=== PATIENT | male | born 1960 | race Caucasian/White ===

== ENCOUNTER 2022-10-09 13:55 | Emergency (ER) | payer BC ==
[2022-10-09] MEDS ORDERED: TORAdol 30 mg Injection IM ONE (14:45)
[2022-10-09] MEDS ORDERED: TORAdol 30 mg Injection ONE (14:47)
--- NOTE | 2022-10-09 14:51 | ERPHSYRPT ---
- History of Present Illness Time Seen by Provider: 10/09/22 14:03 Source: patient Exam Limitations: no limitations Patient Subjective Stated Complaint: C/O hip pain after a fall yesterday. Patient states he fell while mowing his yard; stepped in a hole. Indicates both hips hurt now but the left is worse than the right. Triage Nursing Assessment: Patient ambulates with an uneven gait; limp. He is alert and oriented. No SOB. Skin tone normal. Physician History: 61-year-old with history of hypertension, hyperlipidemia, diabetes mellitus presented in the ER with chief complaint of bilateral hip pain off and on for la st few weeks which patient relates due to his job where he has to walk/run a lot all day long. Yesterday he was mowing his yard and fell hit his left hip against the more and since then having increased pain in the left hip with ambulation. Patient reports his hips/muscles are tense/stiff in the morning and gradually started getting better. Denies any numbness tingling or weakness of lower extremities. No loss of bowel or bladder control. Denies injury anywhere else. Patient rates 7/10 intensity pain, better with resting and more with activity. Patient is requesting work excuse for tomorrow. Occurred: yesterday Injuries/Pain Location: lower extremity Loss of Consciousness: no loss of consciousness Severity of Pain-Max: moderate Severity of Pain-Current: moderate Modifying Factors: Improves With: immobilization. Worsens With: movement Associated Symptoms (Fall): extremity injury, muscle spasms Allergies/Adverse Reactions: No Known Drug Allergies Allergy (Verified 10/09/22 14:12) Home Medications: Amlodipine Besylate [Norvasc] 1 tab PO DAILY 10/09/22 [History] Aspirin EC 81 mg [Ecotrin 81 mg] 1 tab PO DAILY 10/09/22 [History] Atorvastatin Calcium 1 tab PO HS 10/09/22 [History] Metformin HCl 500 mg [Glucophage 500 MG] 2 tab PO BID 10/09/22 [History] Hx Tetanus, Diphtheria Vaccination/Date Given: Yes Hx Influenza Vaccination/Date Given: No Hx Pneumococcal Vaccination/Date Given: No Immunizations Up to Date: Yes Travel Risk - International Travel Have you traveled outside of the country in past 3 weeks: No - Coronavirus Screening Are you exhibiting any of the following symptoms?: No Close contact with a COVID-19 positive Pt in past 14-21 Days: No - Vaccine Status Have you recieved a Covid-19 vaccination: Yes 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 - Review of Systems Constitutional: No Symptoms Eyes: No Symptoms Respiratory: No Symptoms Cardiac: No Symptoms Abdominal/Gastrointestinal: No Symptoms Genitourinary Symptoms: No Symptoms Musculoskeletal: Arthralgias, Injury, Joint Pain Skin: No Symptoms Neurological: No Symptoms Psychological: No Symptoms Hematologic/Lymphatic: No Symptoms Immunological/Allergic: No Symptoms - Past Medical History Pertinent Past Medical History: Yes Cardiac History: High Cholesterol, Hypertension Endocrine Medical History: Diabetes Type II Other Medical History: COVID - Past Surgical History Past Surgical History: Yes Other Surgical History: right foot surgery - Social History Smoking Status: Never smoker Exposure to second hand smoke: No Drug Use: none - Nursing Vital Signs Nursing Vital Signs: Initial Vital Signs Blood Pressure 124/78 10/09/22 14:12 O2 Sat by Pulse Oximetry 97 10/09/22 14:12 Pain Scale Pain Intensity 7 - Jose Coma Score Best Eye Response ([place]): (4) open spontaneously Best Verbal Response (Jose): (5) oriented Best Motor Response ([place]): (6) obeys commands Jose Total: 15 - Physical Exam General Appearance: no apparent distress Head Injury: no evidence of injury Eye Exam: PERRL/EOMI ENT Exam: airway nml, No evidence of ENT injury Neck Exam: supple, trachea midline, full range of motion, normal alignment Respiratory/Chest Exam: normal breath sounds, respiratory distress, No chest tenderness Cardiovascular Exam: normal heart sounds, regular rate/rhythm Gastrointestinal Exam: soft, No tenderness Back Exam: normal inspection Extremity Exam: normal inspection, normal range of motion, pain with movement (Both hips more at the left), No motor deficit, No sensory deficit Neurologic Exam: alert, oriented x 3, cooperative Skin Exam: normal color SpO2 Interpretation: normal SpO2: 98 O2 Delivery: Room Air Ordered Tests: Active Orders 24 hr Category Date Time Status HIP UNI (2V) INCL PEL IF DONE Stat Exams 10/09/22 14:45 Taken Medication Summary Discontinued Medications Generic Name Dose Route Start Last Admin Trade Name Freq PRN Reason Stop Dose Admin Ketorolac Tromethamine 30 mg 10/09/22 14:45 10/09/22 14:48 Ketorolac Tromethamine 30 Mg/Ml Inj IM 10/09/22 14:46 30 mg STAT ONE Administration Ketorolac Tromethamine Confirm 10/09/22 14:47 Ketorolac Tromethamine 30 Mg/Ml Inj Administered 10/09/22 14:48 Dose 30 mg .ROUTE .[employer] ONE - Progress Progress Note: 10/09/22 14:49 61-year-old with history of hypertension, hyperlipidemia, diabetes mellitus presented in the ER with chief complaint of bilateral hip pain off and on for last few weeks which patient relates due to his job where he has to walk/run a lot all day long. Yesterday he was mowing his yard and fell hit his left hip against the more and since then having increased pain in the left hip with ambulation. Patient reports his hips/muscles are tense in the morning and gradually started getting better. Denies any numbness tingling or weakness of lower extremities. No loss of bowel or bladder control. Denies injury anywhere else. Patient rates 7/10 intensity pain, better with resting and more with activity. 10/09/22 15:23 Given Toradol for symptomatic relief. Patient does not have any shortening or rotation. Patient is able to have weightbearing but a little limp. Intact neuro exam lower extremities. No midline back pain. I have obtained x-rays which are negative for fracture dislocation. I believe patient has arthritis and with recent fall it got worse with some contusion. Will give NSAIDs to go home and outpatient primary care/orthopedic follow-up recommended. Discussed signs symptoms of worsening needing return to ER which he seems understanding. Counseled pt/family regarding: diagnosis, need for follow-up, rad results Medical Desision Making - Diagnostic Testing Diagnostic test were ordered, analyzed, and reviewed by me: Yes Radiological Interpretation: Interpreted by me, Reviewed by me - Departure Departure Disposition: Home Clinical Impression: Hip pain, Fall Condition: Stable Critical Care Time: No Referrals: [facility] - ALVARO KIDD NP [NON-STAFF PHY W/O PRIVILEGES] - Follow up/PCP as directed (1-2 days for reevaluation) Instructions: Hip Fracture (DC), Contusion (DC) Additional Instructions: Take Tylenol/diclofenac as needed. Intermittent ice application. Follow-up with orthopedics for reevaluation. Avoid exertional activities. Return to ER for worsening of pain or if having difficulty ambulation etc. Prescriptions: Diclofenac Sodium 50 mg PO TID PRN 7 Days #20 tab PRN Reason: Pain
[2022-10-09 15:04] VITALS: BP 123/73; PULSE 63
[2022-10-09 15:24] VITALS: O2SAT 98
--- NOTE | 2022-10-09 19:16 | XRAY ---
Indication: Pain following fall. Comparison: None AP pelvis and 2 view left hip demonstrates minimal vascular calcifications and mild lower lumbar degenerative changes. No other bony, articular, or soft tissue abnormalities.
== END 2022-10-09 15:37 | disposition home or self-care (01) ==
LOC: ED 13:55
DX: S70.02XA Contusion of left hip, initial encounter (principal); W18.30XA Fall on same level, unspecified, initial encounter; Y93.H2 Activity, gardening and landscaping; Y92.007 Garden or yard of unspecified non-institutional (private) residence as the place of occurrence of the external cause; M25.552 Pain in left hip; M25.551 Pain in right hip; M16.0 Bilateral primary osteoarthritis of hip; E78.5 Hyperlipidemia, unspecified; I10 Essential (primary) hypertension; E11.9 Type 2 diabetes mellitus without complications; Z79.84 Long term (current) use of oral hypoglycemic drugs; Z79.899 Other long term (current) drug therapy; Z86.16 Personal history of COVID-19
CPT/HCPCS: 73502; 96372; 99283; J1885

== ENCOUNTER 2023-03-23 13:03 | Emergency (ER) | payer BC ==
[2023-03-23 13:31] VITALS: RESP 18; TEMP 99
[2023-03-23] MEDS ORDERED: TORAdol 30 mg Injection IM ONE (13:44)
[2023-03-23] MEDS ORDERED: DELTASONE 20 MG PO ONE (13:44)
[2023-03-23 13:45] VITALS: O2SAT 97
--- NOTE | 2023-03-23 13:45 | ERPHSYRPT ---
- History of Present Illness Time Seen by Provider: 03/23/23 13:20 Source: patient Exam Limitations: no limitations Patient Subjective Stated Complaint: pt states "I think I am having a gout flare up." Triage Nursing Assessment: pt came into the er via wheelchair; pt transferred self to cot; pt is axo x4; c/o rt knee pain; pt states pain with ambulation and walking; rt knee is warm to the touch; swelling present to rt knee; strong rt popliteal pulse; strong rt pedal pulse; good cap refill to [facility]; no respiratory distress present; vitals wnl Physician History: Patient is a 62-year-old male history of gout presents to our ED for treatment of a gout flareup to his right knee. Symptoms started 3 days ago and have gotten progressively worse. Patient states his pain and symptomology is identical to his previous gout flareup. Patient declined a knee x-ray. Patient declined a workup for alternative diagnosis such as septic joint. Patient stated is not needed. Risks and benefits of workup versus not obtaining the workup were discussed in detail. Patient requesting steroid, anti-inflammatory and colchicine for his gout flareup. Patient has no other complaints. No fever. No nausea vomiting or diaphoresis. Symptoms are moderate in intensity. No specific worsening improving factors. Patient voices no other complaints or concerns at this time. Portions of this note were created with voice recognition technology. There may be grammatical, spelling, punctuation or sound alike errors Timing/Duration: day(s) (2 to 3 days) Severity: moderate Modifying Factors: Improves With: movement (Pain worse with range of motion of the involved right knee.) Associated Symptoms: denies symptoms, No fever Allergies/Adverse Reactions: No Known Drug Allergies Allergy (Verified 03/23/23 13:11) Home Medications: Amlodipine Besylate [Norvasc] 1 tab PO DAILY 10/09/22 [History] Atorvastatin Calcium 1 tab PO HS 10/09/22 [History] Metformin HCl 500 mg [Glucophage 500 MG] 2 tab PO BID 10/09/22 [History] lisinopriL [Lisinopril] 40 mg PO DAILY 03/23/23 [History] Hx Tetanus, Diphtheria Vaccination/Date Given: No Hx Influenza Vaccination/Date Given: No Hx Pneumococcal Vaccination/Date Given: No Travel Risk - International Travel Have you traveled outside of the country in past 3 weeks: No - Coronavirus Screening Are you exhibiting any of the following symptoms?: No Close contact with a COVID-19 positive Pt in past 14-21 Days: No - Vaccine Status Have you recieved a Covid-19 vaccination: No [employer] 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: [employer] - Review of Systems Constitutional: No Symptoms, No Fever, No Chills Eyes: No Symptoms Ears, Nose, & Throat: No Symptoms Respiratory: No Symptoms, No Cough, No Dyspnea Cardiac: No Symptoms, No Chest Pain, No Edema, No Syncope Abdominal/Gastrointestinal: No Symptoms, No Abdominal Pain, No Nausea, No Vomiting, No Diarrhea Genitourinary Symptoms: No Symptoms, No Dysuria Musculoskeletal: No Symptoms, No Back Pain, No Neck Pain Skin: No Symptoms, No Rash Neurological: No Symptoms, No Dizziness, No Focal Weakness, No Sensory Changes Psychological: No Symptoms Endocrine: No Symptoms Hematologic/Lymphatic: No Symptoms Immunological/Allergic: No Symptoms All Other Systems: Reviewed and Negative - Past Medical History Pertinent Past Medical History: Yes Neurological History: No Pertinent History ENT History: No Pertinent History Cardiac History: High Cholesterol, Hypertension Respiratory History: No Pertinent History Endocrine Medical History: Diabetes Type II, Other Musculoskeletal History: No Pertinent History GI Medical History: No Pertinent History History: No Pertinent History Psycho-Social History: No Pertinent History Male Reproductive Disorders: No Pertinent History Other Medical History: PROTEIN IN THE KIDNEYS, - Past Surgical History Past Surgical History: Yes Musculoskeletal: Orthopedic Surgery Other Surgical History: right foot surgery - Social History Smoking Status: Former smoker Exposure to second hand smoke: No Drug Use: none Patient Lives Alone: No - Nursing Vital Signs Nursing Vital Signs: Initial Vital Signs Temperature 99 F 03/23/23 13:15 Pulse Rate 84 03/23/23 13:15 Respiratory Rate 18 03/23/23 13:15 Blood Pressure 133/79 03/23/23 13:15 O2 Sat by Pulse Oximetry 97 03/23/23 13:15 Pain Scale Pain Intensity [Right Knee] 10 Pain Intensity 10 - Physical Exam General Appearance: no apparent distress, alert Eye Exam: PERRL/EOMI, eyes nml inspection Ears, Nose, Throat Exam: normal ENT inspection, TMs normal, pharynx normal, moist mucous membranes Neck Exam: normal inspection, non-tender, supple, full range of motion Respiratory Exam: normal breath sounds, lungs clear, airway intact, No respiratory distress Cardiovascular Exam: regular rate/rhythm, normal heart sounds, normal peripheral pulses Gastrointestinal/Abdomen Exam: soft, normal bowel sounds, No tenderness, No mass Back Exam: normal inspection, normal range of motion, No CVA tenderness, No vertebral tenderness Extremity Exam: normal inspection, normal range of motion, pelvis stable Neurologic Exam: alert, oriented x 3, cooperative, normal mood/affect, sensation nml, No motor deficits Skin Exam: normal color, warm, dry, No rash Lymphatic Exam: No adenopathy SpO2 Interpretation: normal SpO2: 97 O2 Delivery: Room Air - Course Nursing assessment & vital signs reviewed: Yes Ordered Tests: Medication Summary Discontinued Medications Generic Name Dose Route Start Last Admin Trade Name Tungq PRN Reason Stop Dose Admin Ketorolac Tromethamine 30 mg 03/23/23 13:44 03/23/23 13:47 Ketorolac Tromethamine 30 Mg/Ml Inj IM 03/23/23 13:45 30 mg STAT ONE Administration Ketorolac Tromethamine Confirm 03/23/23 13:46 Ketorolac Tromethamine 30 Mg/Ml Inj Administered 03/23/23 13:47 Dose 30 mg .ROUTE .[employer] ONE Prednisone 60 mg 03/23/23 13:44 03/23/23 13:47 Prednisone 20 Mg Tablet PO 03/23/23 13:45 60 mg STAT ONE Administration Prednisone Confirm 03/23/23 13:46 Prednisone 20 Mg Tablet Administered 03/23/23 13:47 Dose 60 mg .ROUTE .[employer] ONE - Progress Progress: improved Progress Note: Patient is a 62-year-old male with history of gout presents to our ED with what he believes is a gout flareup. Pain started about 2 to 3 days ago. Pain has gotten worse. No fever. No blunt trauma. Physical exam reveals a swollen warm knee. Pain worse with range of motion. The involved extremity is neurovascular intact distally. Compartments are soft cap refill less than 2 seconds. Homans' sign negative. Other differential for patient's presentation is a septic knee. We advised a workup including x-ray of the involved knee however patient declined. Risks and benefits of workup versus not obtaining the workup were discussed. Patient is convinced that it is gout flareup and declined any other management aside from a steroid anti-inflammatory and colchicine. Patient has received this medication combination in the past for gout flareup. Patient states this combination resolves his gout flareup. He is requesting the same management. Patient received a dose of prednisone and Toradol anti-inflammatory in our ED. A prescription for prednisone colchicine and indomethacin was forwarded to patient's pharmacy. Significant other at bedside. They voiced no other complaints or concerns at this time. Portions of this note were created with voice recognition technology. There may be grammatical, spelling, punctuation or sound alike errors Complexity of problems addressed is moderate acute complicated No critical care time Complexity of data reviewed and analyzed is none. Impression made based on history and physical examination. No specialized testing ordered per patient's request Risk of complication and or risk of morbidity/mortality of patient management is moderate. Prescription for colchicine, prednisone and indomethacin forwarded to patient's pharmacy. Vital stable. Time spent to discharge patient is approximately 15 minutes. Plan of care established for shared decision making. No social determinants of health present impede follow-up. Portions of this note were created with voice recognition technology. There may be grammatical, spelling, punctuation or sound alike errors 03/23/23 14:07 Counseled pt/family regarding: diagnosis, need for follow-up - Departure Departure Disposition: Home Clinical Impression: Gout flare Condition: Stable Critical Care Time: No Referrals: DOCTOR,NO FAMILY [NON-STAFF PHY W/O PRIVILEGES] - Follow up/PCP as directed MARGY REYNOLDS MD [ACTIVE STAFF] - Follow up/PCP as directed Additional Instructions: Discharge/Care Plan VÍCTOR QUEVEDO was seen on 03/23/23 in the Emergency Room. The patient was counseled regarding Diagnosis,Lab results, Imaging studies, need for follow up and when to return to the Emergency Room. Prescriptions given: Discharge Note I have spoken with the patient and/or caregivers. I have explained the patient's condition, diagnosis and treatment plan based on the information available to me at this time. I have answered the patient's and/or caregiver's questions and addressed any concerns. The patient and/or caregivers have as good understanding of the patient's diagnosis, condition and treatment plan as can be expected at this point. The vital signs have been stable. The patient's condition is stable and appropriate for discharge from the emergency department. The patient will pursue further outpatient evaluation with the primary care physician or other designated or consulting physician as outlined in the discharge instructions. The patient and/or caregivers are agreeable to this plan of care and follow-up instructions have been explained in detail. The patient and/or caregivers have received these instruction. The patient/and or caregivers are aware that any significant change in condition or worsening of symptoms should prompt an immediate return to this or the closest emergency department or call 911. Prescriptions: Colchicine 0.6 mg PO DAILY 4 Days #6 cap Prednisone 10 mg [Deltasone 10 mg] 40 mg PO DAILY 3 Days #12 tablet Indomethacin 25 mg [Indocin 25 MG] 25 mg PO TID 5 Days #15 cap
[2023-03-23] MEDS ORDERED: TORAdol 30 mg Injection ONE (13:46)
[2023-03-23] MEDS ORDERED: DELTASONE 20 MG ONE (13:46)
[2023-03-23 14:16] VITALS: BP 135/82
[2023-03-23 14:24] VITALS: PULSE 70
== END 2023-03-23 14:24 | disposition home or self-care (01) ==
LOC: ED 13:03
DX: M10.9 Gout, unspecified (principal); M25.561 Pain in right knee; E78.5 Hyperlipidemia, unspecified; I10 Essential (primary) hypertension; E11.9 Type 2 diabetes mellitus without complications; Z79.52 Long term (current) use of systemic steroids; Z79.84 Long term (current) use of oral hypoglycemic drugs; Z79.899 Other long term (current) drug therapy
CPT/HCPCS: 96372; 99283; J1885; A9270-GY

== ENCOUNTER 2024-07-30 19:39 | Emergency (ER) | payer BC ==
[2024-07-30 19:46] VITALS: TEMP 98.8
[2024-07-30 20:14] LABS: Absolute Neutrophil Ct (ANC) 6.11 x10^3/uL (1.78-5.38); BASOPHIL % 0.5 % (0.2-1.2); Basophil (Absolute #) 0.04 x10^3/uL (0.01-0.08); Eosinophil % 0.8 % (0.8-7.0); Eosinophil (Absolute #) 0.07 x10^3/uL (0.04-0.54); Hematocrit 29.8 % (40.1-51.0); Hemoglobin 9.9 g/dL (13.7-17.5); IMMATURE GRAN # 0.03 x10^3u/L (0.001-0.031); IMMATURE GRAN % 0.4 % (0.001-0.429); Lymphocyte (Absolute #) 1.64 x10^3/uL (1.32-3.57); Lymphocytes % 19.3 % (21.8-53.1); Mean Cell Volume 94.3 fL (79.0-92.2); Mean Corpuscular Hemoglobin 31.3 pg (25.7-32.2); Mean Corpuscular Hgb Concent. 33.2 g/dL (32.3-36.5); Mean Platelet Volume 10.9 fL (9.4-12.4); Monocytes % 7.1 % (5.3-12.2); Neutrophil % 71.9 % (34.0-67.9); Platelet Count 242 x10^3/uL (163-337); Red Blood Count 3.16 x10^6/uL (4.63-6.08); Red Cell Distribution Width 12.8 % (11.6-14.4); White Blood Count 8.5 x10^3/uL (4.23-9.07)
[2024-07-30 20:26] LABS: ALBUMIN 4.9 g/dL (3.5-5.0); ANION GAP 22.6 MEQ/L (5-15); BILIRUBIN,TOTAL 0.8 mg/dL (0.2-1.3); Calcium 9.1 mg/dL (8.4-10.2); Creatinine 1 2.36 mg/dL (0.66-1.25); EST GLOMERULAR FILTRATION RATE 30.2 ML/MIN; Potassium 4.9 mmol/L (3.5-5.1); Total Protein 7.6 g/dL (6.3-8.2)
[2024-07-30 20:48] VITALS: O2SAT 92
[2024-07-30] MEDS ORDERED: SODIUM BICARBONATE 50 MEQ/50 ML ABBOJECT IV ONE (21:09)
--- NOTE | 2024-07-30 21:13 | ERPHSYRPT ---
- History of Present Illness Time Seen by Provider: 07/30/24 21:13 Source: patient Exam Limitations: no limitations Patient Subjective Stated Complaint: "They called me and said my CO2 level was low. I'm diabetic and I've been seeing a kidney doctor, who says my kidneys are functioning around 43%". Triage Nursing Assessment: Pt presents to ER due to being notified by his Kidney doctor that his outpatient labs resulted with a critical CO2 level. Pt presents to ER relatively asymptomatic, denies any complaints at this time or pain. States has been on Jardiance for a month or two and noticed some cramping in his legs and shortness of breath. He also mentioned a recent ruptured blood vessel in left eye recently. Pt is alert and oriented x 3. Skin is pink, warm, and dry. Respirations are easy. Denies any n/v/d. Ambulates and communicates without difficulty. Physician History: Patient is a 63-year-old male with history of diabetic nephropathy with a kidney function of 43% presents to our ED as a referral from lab for evaluation of a low bicarb level. Patient's safety equipment testing specialist Dr Sharp ordered basic labs today. boiler control technician observed that the CO2 was low. Per policy they contacted Aron's office. However he could not be reached. So per policy patient was sent to our ED. Patient otherwise asymptomatic. No chest pain or shortness of breath. No nausea vomiting or diaphoresis. Patient advises that he has been experiencing some intermittent muscle cramping however no muscle cramping at the present time. Patient voices no other complaints or concerns at this time. Portions of this note were created with voice recognition technology. There may be grammatical, spelling, punctuation or sound alike errors Timing/Duration: today Severity: moderate Modifying Factors: Improves With: nothing Associated Symptoms: denies symptoms Allergies/Adverse Reactions: mayonnaise Allergy (Verified 07/30/24 19:47) mustard Allergy (Verified 07/30/24 19:47) Home Medications: Amlodipine Besylate [Norvasc] 1 tab PO DAILY 10/09/22 [History] Atorvastatin Calcium 1 tab PO HS 10/09/22 [History] Metformin HCl 500 mg [Glucophage 500 MG] 2 tab PO BID 10/09/22 [History] Empagliflozin [Jardiance] 0.5 tab PO HS 07/30/24 [History] Hx Tetanus, Diphtheria Vaccination/Date Given: Yes Hx Influenza Vaccination/Date Given: No Hx Pneumococcal Vaccination/Date Given: No Immunizations Up to Date: No Travel Risk - International Travel Have you traveled outside of the country in past 3 weeks: No - Emerging Infectious Disease Are you exhibiting symptoms associated with any current EIDs: No - Review of Systems Constitutional: No Symptoms, No Fever, No Chills Eyes: No Symptoms Ears, Nose, & Throat: No Symptoms Respiratory: No Symptoms, No Cough, No Dyspnea Cardiac: No Symptoms, No Chest Pain, No Edema, No Syncope Abdominal/Gastrointestinal: No Symptoms, No Abdominal Pain, No Nausea, No Vomiti ng, No Diarrhea Genitourinary Symptoms: No Symptoms, No Dysuria Musculoskeletal: No Symptoms, No Back Pain, No Neck Pain Skin: No Symptoms, No Rash Neurological: No Symptoms, No Dizziness, No Focal Weakness, No Sensory Changes Psychological: No Symptoms Endocrine: No Symptoms Hematologic/Lymphatic: No Symptoms Immunological/Allergic: No Symptoms All Other Systems: Reviewed and Negative - Past Medical History Pertinent Past Medical History: Yes Neurological History: No Pertinent History ENT History: No Pertinent History Cardiac History: High Cholesterol, Hypertension Respiratory History: No Pertinent History Endocrine Medical History: Diabetes Type II, Other Musculoskeletal History: No Pertinent History GI Medical History: No Pertinent History History: No Pertinent History Psycho-Social History: No Pertinent History Male Reproductive Disorders: No Pertinent History Other Medical History: PROTEIN IN THE KIDNEYS, gout, kidney function around 43% - Past Surgical History Past Surgical History: Yes Neuro Surgical History: No Pertinent History Cardiac: No Pertinent History Respiratory: No Pertinent History Gastrointestinal: No Pertinent History Genitourinary: No Pertinent History Musculoskeletal: Orthopedic Surgery Male Surgical History: No Pertinent History Other Surgical History: right foot surgery - Social History Smoking Status: Never smoker Exposure to second hand smoke: No Drug Use: none - Social Determinants of Health Will the patient participate in the screening: Yes Do you worry about a steady place to live?: No Do you have any problems with any of the following?: No known problems In the past 12 months,have you had to go without utilities?: No Transportation Issues: No Has anyone in your support network made you feel unsafe?: No Have you or anyone in your house had to go w/o enough food: No - Nursing Vital Signs Nursing Vital Signs: Initial Vital Signs Temperature 98.8 F 07/30/24 19:41 Pulse Rate 83 07/30/24 19:41 Respiratory Rate 18 07/30/24 19:41 Blood Pressure 123/76 07/30/24 19:41 O2 Sat by Pulse Oximetry 96 07/30/24 19:41 Pain Scale Pain Intensity 0 - Physical Exam General Appearance: no apparent distress, alert Eye Exam: PERRL/EOMI, eyes nml inspection Ears, Nose, Throat Exam: normal ENT inspection, moist mucous membranes Neck Exam: normal inspection, full range of motion Respiratory Exam: normal breath sounds, lungs clear, airway intact, No respiratory distress Cardiovascular Exam: regular rate/rhythm, normal heart sounds, normal peripheral pulses Gastrointestinal/Abdomen Exam: soft, normal bowel sounds, No tenderness, No mass Back Exam: normal inspection, normal range of motion, No CVA tenderness, No vertebral tenderness Extremity Exam: normal inspection, normal range of motion, pelvis stable Neurologic Exam: alert, oriented x 3, cooperative, normal mood/affect, nml station & gait, sensation nml, No motor deficits Skin Exam: normal color, warm, dry, No rash Lymphatic Exam: No adenopathy SpO2 Interpretation: normal SpO2: 92 O2 Delivery: Room Air - Course Nursing assessment & vital signs reviewed: Yes Ordered Tests: Active Orders 24 hr Category Date Time Status CBC W DIFF Stat Lab 07/30/24 20:15 Completed CMP Stat Lab 07/30/24 20:15 Completed POCT GLUCOSE Stat Lab 07/30/24 19:43 Completed Medication Summary Discontinued Medications Generic Name Dose Route Start Last Admin Trade Name Lou PRN Reason Stop Dose Admin Sodium Bicarbonate 50 meq 07/30/24 21:07 07/30/24 21:25 Sodium Bicarbonate 1 Meq/Ml 50ml Syringe IV 07/30/24 21:08 50 meq STAT ONE Administration Sodium Bicarbonate Confirm 07/30/24 21:09 Sodium Bicarbonate 1 Meq/Ml 50ml Syringe Administered 07/30/24 21:10 Dose 50 meq IV .Helium-MED ONE Lab/Rad Data: Laboratory Result Diagrams 07/30/24 20:15 07/30/24 20:15 Laboratory Results 07/30/24 07/30/24 07/30/24 Range/Units 20:15 20:15 19:43 WBC 8.5 (4.23-9.07) x10^3/uL RBC 3.16 L (4.63-6.08) x10^6/uL Hgb 9.9 L (13.7-17.5) g/dL Hct 29.8 L (40.1-51.0) % MCV 94.3 H (79.0-92.2) fL MCH 31.3 (25.7-32.2) pg MCHC 33.2 (32.3-36.5) g/dL RDW 12.8 (11.6-14.4) % Plt Count 242 (163-337) x10^3/uL MPV 10.9 (9.4-12.4) fL Gran % 71.9 H (34.0-67.9) % Immature Gran % (Auto) 0.4 (0.001-0.429) % Nucleat RBC Rel Count 0.0 (0.00-0.2) % Eos # (Auto) 0.07 (0.04-0.54) x10^3/uL Immature Gran # (Auto) 0.03 (0.001-0.031) x10^3u/L Absolute Lymphs (auto) 1.64 (1.32-3.57) x10^3/uL Absolute Monos (auto) 0.60 (0.30-0.82) x10^3/uL Absolute Nucleated RBC 0.00 (0.00-0.012) x10^3u/L Lymphocytes % 19.3 L (21.8-53.1) % Monocytes % 7.1 (5.3-12.2) % Eosinophils % 0.8 (0.8-7.0) % Basophils % 0.5 (0.2-1.2) % Absolute Granulocytes 6.11 H (1.78-5.38) x10^3/uL Basophils # 0.04 (0.01-0.08) x10^3/uL Sodium 137 (135-145) mmol/L Potassium 4.9 (3.5-5.1) mmol/L Chloride 106 (98-107) mmol/L Carbon Dioxide 13 L* (22-30) mmol/L Anion Gap 22.6 H (5-15) MEQ/L BUN 62 H (9-20) mg/dL Creatinine 2.36 H (0.66-1.25) mg/dL Estimated GFR 30.2 ML/MIN Glucose 169 H (74-106) mg/dL POC Glucometer 160 H (74 to 106) mg/dL Calcium 9.1 (8.4-10.2) mg/dL Total Bilirubin 0.80 (0.2-1.3) mg/dL AST 31 (17-59) U/L ALT 25 (0-50) U/L Alkaline Phosphatase 52 (38-126) U/L Serum Total Protein 7.6 (6.3-8.2) g/dL Albumin 4.9 (3.5-5.0) g/dL - Progress Progress: improved Progress Note: Patient 63-year-old male history of diabetic nephropathy presents to our ED for an abnormal CO2. CO2 is 13. Patient otherwise asymptomatic. We contacted patient's safety equipment testing specialist who advised administering an amp of bicarb. Then patient to take 650 mg of sodium bicarb twice a day. Per patient to see him in his office this week. Patient will call 's office in the morning for a follow-up visit. Patient reassessed. He is resting comfortably. He voices no complaints or concerns at this time. Portions of this note were created with voice recognition technology. There may be grammatical, spelling, punctuation or sound alike errors Complexity of problem addressed is moderate acute complicated. No critical care time. Complexity of data reviewed and analyzed as extensive. Test ordered test reviewed results analyzed and correlated clinically. Management discussed with patient's safety equipment testing specialist who dictated management in our ED as well as on an outpatient basis. Risk of complication and or risk of morbidity/mortality of patient management is moderate. A prescription for sodium bicarb forwarded to patient's pharmacy per patient's safety equipment testing specialist recommendation. Vital stable. Time spent to discharge patient is approximately 10 minutes. Plan of care established for shared decision making. No social determinants of health present to impede follow-up. Portions of this note were created with voice recognition technology. There may be grammatical, spelling, punctuation or sound alike errors 07/30/24 21:21 Counseled pt/family regarding: lab results, diagnosis, need for follow-up - Departure Departure Disposition: Home Clinical Impression: Low CO2 Condition: Stable Critical Care Time: No Referrals: [facility] [Primary Care Provider] - Follow up/PCP as directed Instructions: Dehydration, Adult (DC) Additional Instructions: Discharge/Care Plan VÍCTOR QUEVEDO was seen on 07/30/24 in the Emergency Room. The patient was counseled regarding Diagnosis,Lab results, Imaging studies, need for follow up and when to return to the Emergency Room. Prescriptions given: Discharge Note I have spoken with the patient and/or caregivers. I have explained the patient's condition, diagnosis and treatment plan based on the information available to me at this time. I have answered the patient's and/or caregiver's questions and addressed any concerns. The patient and/or caregivers have as good understanding of the patient's diagnosis, condition and treatment plan as can be expected at this point. The vital signs have been stable. The patient's condition is stable and appropriate for discharge from the emergency department. The patient will pursue further outpatient evaluation with the primary care physician or other designated or consulting physician as outlined in the discharge instructions. The patient and/or caregivers are agreeable to this plan of care and follow-up instructions have been explained in detail. The patient and/or caregivers have received these instruction. The patient/and or caregivers are aware that any significant change in condition or worsening of symptoms should prompt an immediate return to this or the closest emergency department or call 911. Prescriptions: Sodium Bicarbonate 650 mg PO BID 14 Days #28 tablet
[2024-07-30 21:14] VITALS: BP 103/68; PULSE 80; RESP 22
[2024-07-30] MEDS: SODIUM BICARBONATE 50 MEQ/50 ML ABBOJECT IV ONE (21:25)
== END 2024-07-30 21:40 | disposition home or self-care (01) ==
LOC: ED 19:39
DX: R79.89 Other specified abnormal findings of blood chemistry (principal); E78.5 Hyperlipidemia, unspecified; I10 Essential (primary) hypertension; E11.9 Type 2 diabetes mellitus without complications; Z79.84 Long term (current) use of oral hypoglycemic drugs; Z79.899 Other long term (current) drug therapy
CPT/HCPCS: 36415; 80053; 82947; 85025; 96374; 99283; 99284